=== PATIENT | male | born 1985 | race Caucasian/White ===

== ENCOUNTER 2017-02-07 13:06 | Emergency (ER) | payer OTHER ==
[2017-02-07 13:10] VITALS: RESP 16; TEMP 98.6
--- NOTE | 2017-02-07 13:36 | EDPHY ---
H & P Stated Complaint: Flu like sxs x 1 wk Time Seen by Provider: 02/07/17 13:35 Source: Patient Exam Limitations: No limitations - Personal History Current Tetanus Diphtheria and Acellular Pertussis (TDAP): Yes - Medical/Surgical History Hx Asthma: No Hx Chronic Respiratory Disease: No Hx Diabetes: No Hx Cardiac Disease: No Hx Renal Disease: No Hx Cirrhosis: No Hx Alcoholism: No Hx HIV/AIDS: No Hx Splenectomy or Spleen Trauma: No Other PMH: denies - Social History Smoking Status: Never smoked Constitutional: Initial Vital Signs Temperature (C) 37 C 02/07/17 13:07 Heart Rate 86 02/07/17 13:07 Respiratory Rate 16 02/07/17 13:07 Blood Pressure 135/60 H 02/07/17 13:07 O2 Sat (%) 96 02/07/17 13:07 O2 Delivery Mode Room Air Allergies/Adverse Reactions: No Known Allergies Allergy (Verified 02/07/17 13:06) Home Medications: Medication Instructions Recorded AZITHROMYCIN [Z-PACK] 250 mg PO DAILY #1 packet 02/07/17 oxyCODONE IR [Oxycodone Ir (*)] 5 - 10 mg PO Q6 PRN #20 tab 02/07/17 predniSONE 60 mg PO ONCE #3 tab 02/07/17 Medical Decision Making ED Course/Re-evaluation: CHIEF COMPLAINT: Sore throat. HISTORY OF PRESENT ILLNESS: The patient presents with sore throat that started 4 days ago. He additionally has cough, hoarse voice, and congestion. He has a productive cough in the morning and develops nasal congestion throughout the day. The patient is having difficulty swallowing secondary to pain. He denies fever, rash, chest pain, or dyspnea. REVIEW OF SYSTEMS: A 10 point review of systems was performed and is negative with the exception of the elements mentioned in the history of present illness. PHYSICAL EXAM: HR, BP, O2 Sat, RR. Temp noted General Appearance: Alert, well hydrated, appropriate, and non-toxic appearing. Eyes: Pupils equal, round, reactive to light and accommodation, EOMI, no trauma , no injection. Nose: Atraumatic, no rhinorrhea, clear. Throat: Pharyngeal erythema, no exudate. Neck: Supple, 2+ carotid upstroke, no lymphadenopathy. Respiratory: Coarse rhonchi throughout. Cardiovascular: Regular rate and rhythm, no murmurs, rubs, or gallops. Bilateral carotid, radial, dorsalis pedis, and posterior tibial pulses intact. Good capillary refill all extremities. Gastrointestinal: Abdomen is soft, nontender, non-distended, no masses, no rebound, no guarding, no peritoneal signs. Musculoskeletal: Normal active ROM of all extremities, atraumatic. Neurological: Alert, appropriate, and interactive. The patient has normal DTRs and non-focal cranial nerves, motor, sensory, and cerebellar exam. Skin: No rashes, good turgor, no nodules on palpation. Past medical history: Denies. Past surgical history: Denies. Family history: Noncontributory. Social history: Single. Lives in [place]. DIFFERENTIAL DIAGNOSIS: The differential diagnosis for the patient's sore throat included but was not limited to strep throat, pharyngitis, peritonsillar abscess, viral syndrome, and sepsis. MEDICAL DECISION MAKING: Patient presents with sore throat, cough, and congestion. On examination the patient has tonsillar erythema, no exudates. He has coarse rhonchi throughout. Plan to treat the patient with Zithromax. Departure - Departure Disposition: Home, Routine, Self-Care Clinical Impression: Pharyngitis Qualifiers: Pharyngitis/tonsillitis etiology: unspecified etiology Qualified Code(s): J02.9 - Acute pharyngitis, unspecified Condition: Good Instructions: Strep Throat (ED) Additional Instructions: Take the full course of antibiotics as directed. Drink plenty of fluids and get adequate rest. You have been referred to a PCP below, please follow up as needed. Return to the Emergency Department with new or worsening symptoms. 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 ) Report Scribed for: Edward Donnelly Report Scribed by: Lali Chang Date of Report: 02/07/17 Time of Report: 14:00
[2017-02-07 14:09] VITALS: BP 118/61; PULSE 75; O2SAT 94
== END 2017-02-07 14:10 | disposition home or self-care (01) ==
DX: J02.9 Acute pharyngitis, unspecified (principal)